=== PATIENT | male | born 1995 | race Asian ===

== ENCOUNTER 2021-08-11 08:52 | Emergency (ER) | payer MEDICAID, OTHER, SELFPAY ==
[2021-08-11 09:04] VITALS: BP 128/93; PULSE 98; O2SAT 100
[2021-08-11 09:05] VITALS: BP 128/93; PULSE 90; RESP 18; TEMP 36.1; O2SAT 97; BMI 23.0
[2021-08-11 09:21] VITALS: BP 126/79; PULSE 76; RESP 18; TEMP 36.9; O2SAT 98
--- NOTE | 2021-08-11 09:22 | ED.PSYCH ---
HPI - Psych General Chief Complaint: Psychiatric Symptoms Stated Complaint: ETOH USE,SI, WANTS HELP Time Seen by Provider: 08/11/21 09:21 History of Present Illness HPI Narrative: Patient is a 26-year-old male positive stresses in life. Presented today with having possible SI. Positive EtOH. Positive depression. Patient unable to give details. Asking for help. Denies any overdose Related Data Allergies Allergy/AdvReac Type Severity Reaction Status Date / Time No Known Allergies Allergy Verified 08/11/21 09:21 Review of Systems Review of Systems: Unable to obtain full review systems 2nd patient's condition [facility] Past Medical History Attestation statement: The following information was validated with the patient. Medical History Depression Social History Social History Advance Directives: No Advance Directives Information Provided: No Physical Exam Vital Signs: Vital Signs: Last Vital Signs Temp 97.7 F 08/11/21 12:11 Pulse 96 08/11/21 12:11 Resp 18 08/11/21 12:11 BP 118/76 08/11/21 12:11 Pulse Ox 98 08/11/21 12:11 Body Mass Index 23.0 Appearance: Alert. Oriented X3. No acute distress. Eyes: Pupils equal, round and reactive to light. ENT: Pharynx normal. Neck: Normal inspection. Neck supple. No lymph nodes noted. No crepitus CVS: Normal heart rate and rhythm. Pulses normal. Normal S1 and S2 Respiratory: No respiratory distress. Breath sounds normal. No Wheezing. No rales Abdomen: Soft and nontender. No rigidity. No distention. good BS x4 Skin: Skin warm and dry. Normal skin color. Normal skin turgor. Extremities: No lower extremity edema. Neurovascular intact to all extremities. No Lacerations. No Rash Neuro: Oriented X 3. No motor deficit. No sensory deficit. Moving all extermities. No slurred speech MDM - Psych MDM Narrative Medical decision making narrative: Patient being seen by crisis intervention for possible suicidal ideation. Alcohol was in the 160s range. Currently medically clear. In stable condition. Lab Data Result diagrams: 08/11/21 09:37 08/11/21 09:37 Labs: Lab Results 1108/11/21 08/11/21 Range/Units 09:37 09:37 09:37 WBC 6.0 (4.8-10.8) X10*3/uL RBC 4.93 (4.60-5.80) X10*6/uL Hgb 15.3 (14.0-18.0) g/dl Hct 44.4 (42.0-52.0) % MCV 90.1 (80.0-98.0) fL MCH 31.0 (27.0-33.0) pg MCHC 34.5 (31.0-36.0) g/dl RDW 13.1 (11.0-16.0) % Plt Count 268 (160-400) X10*3/uL MPV 9.4 (9.4-12.4) fL Immature Gran % (Auto) 0.2 (0.0-0.4) % Neut % (Auto) 56.8 (45-73) % Lymph % (Auto) 34.6 (20-40) % [place] % (Auto) 6.8 (2-11) % Eos % (Auto) 1.3 (0-4) % Baso % (Auto) 0.3 (0-2) % Lymph # (Auto) 2.1 (1.2-4.9) X10*3/uL [place] # (Auto) 0.4 (0.1-1.2) X10*3/uL Eos # (Auto) 0.1 (0.0-0.4) X10*3/uL Baso # (Auto) 0.0 (0.0-0.2) X10*3/uL Abs Immat Gran (auto) 0.01 (0.00-0.03) X10*3/uL Absolute Neuts (auto) 3.4 (2.0-8.3) x10*3/uL Absolute Nucleated RBC 0.000 (0.0-0.012) X10*3/uL Nucleated RBC % (auto) 0.0 (0.0-0.2) /100WBC Sodium 142 (135-145) mmol/L Potassium 4.0 (3.3-5.1) mmol/L Chloride 107 (96-108) mmol/L Carbon Dioxide 22 (22-29) mmol/L Anion Gap 17 (12-20) BUN 13 (9-16) mg/dL Creatinine 0.85 (0.5-1.4) mg/dL Estim Creat Clear Calc 146.1 Estimated GFR > 60 Random Glucose 103 (60-115) mg/dL Calcium 9.5 (8.4-10.2) mg/dL Total Bilirubin 0.4 (0.0-1.0) mg/dL AST 23 (5-37) U/L ALT 27 (0-40) U/L Alkaline Phosphatase 76 (39-117) U/L Total Protein 7.6 (6.5-8.0) g/dL Albumin 4.8 (3.5-5.0) g/dL Salicylates < 5.0 L (15-30) mg/dL Acetaminophen < 1 (<30) mcg/mL Ethyl Alcohol 169 mg/dL COVID-19 ([facility]) (Negative) COVID-19 Clin Com 08/11/21 Range/Units 11:30 WBC (4.8-10.8) X10*3/uL RBC (4.60-5.80) X10*6/uL Hgb (14.0-18.0) g/dl Hct (42.0-52.0) % MCV (80.0-98.0) fL MCH (27.0-33.0) pg MCHC (31.0-36.0) g/dl RDW (11.0-16.0) % Plt Count (160-400) X10*3/uL MPV (9.4-12.4) fL Immature Gran % (Auto) (0.0-0.4) % Neut % (Auto) (45-73) % Lymph % (Auto) (20-40) % [place] % (Auto) (2-11) % Eos % (Auto) (0-4) % Baso % (Auto) (0-2) % Lymph # (Auto) (1.2-4.9) X10*3/uL [place] # (Auto) (0.1-1.2) X10*3/uL Eos # (Auto) (0.0-0.4) X10*3/uL Baso # (Auto) (0.0-0.2) X10*3/uL Abs Immat Gran (auto) (0.00-0.03) X10*3/uL Absolute Neuts (auto) (2.0-8.3) x10*3/uL Absolute Nucleated RBC (0.0-0.012) X10*3/uL Nucleated RBC % (auto) (0.0-0.2) /100WBC Sodium (135-145) mmol/L Potassium (3.3-5.1) mmol/L Chloride (96-108) mmol/L Carbon Dioxide (22-29) mmol/L Anion Gap (12-20) BUN (9-16) mg/dL Creatinine (0.5-1.4) mg/dL Estim Creat Clear Calc Estimated GFR Random Glucose (60-115) mg/dL Calcium (8.4-10.2) mg/dL Total Bilirubin (0.0-1.0) mg/dL AST (5-37) U/L ALT (0-40) U/L Alkaline Phosphatase (39-117) U/L Total Protein (6.5-8.0) g/dL Albumin (3.5-5.0) g/dL Salicylates (15-30) mg/dL Acetaminophen (<30) mcg/mL Ethyl Alcohol mg/dL COVID-19 ([facility]) Negative (Negative) COVID-19 Clin Com See Note Discharge Plan Discharge Clinical Impression: Alcohol intoxication
[2021-08-11 09:42] LABS: Basophils Percent Auto 0.3 % (0-2); Eosinophils Absolute Auto 0.1 X10*3/uL (0.0-0.4); Eosinophils Percent Auto 1.3 % (0-4); Hematocrit 44.4 % (42.0-52.0); Hemoglobin 15.3 g/dl (14.0-18.0); Imm Gran Abs Auto 0.01 X10*3/uL (0.00-0.03); Imm Gran Pct Auto 0.2 % (0.0-0.4); Lymphocytes Absolute Auto 2.1 X10*3/uL (1.2-4.9); Lymphocytes Percent Auto 34.6 % (20-40); MANUAL DIFF FLAG NO; Mean Corpuscular HGB Conc 34.5 g/dl (31.0-36.0); Mean Corpuscular Volume 90.1 fL (80.0-98.0); Mean Platelet Volume 9.4 fL (9.4-12.4); Monocytes Absolute Auto 0.4 X10*3/uL (0.1-1.2); Monocytes Percent Auto 6.8 % (2-11); Neutrophils Absolute Auto 3.4 x10*3/uL (2.0-8.3); Neutrophils Percent Auto 56.8 % (45-73); Platelet Count 268 X10*3/uL (160-400); Red Blood Count 4.93 X10*6/uL (4.60-5.80); Red Cell Distribution Width 13.1 % (11.0-16.0)
[2021-08-11 09:57] LABS: Ethanol 169 mg/dL
[2021-08-11 10:10] LABS: Acetaminophen LAB < 1 mcg/mL (<30); Alanine Aminotransferase 27 U/L (0-40); Albumin Level 4.8 g/dL (3.5-5.0); Alkaline Phosphatase 76 U/L (39-117); Anion Gap 17 (12-20); Aspartate Amino Transferase 23 U/L (5-37); Bilirubin Total 0.4 mg/dL (0.0-1.0); Blood Urea Nitrogen 13 mg/dL (9-16); Calcium 9.5 mg/dL (8.4-10.2); Carbon Dioxide 22 mmol/L (22-29); Chloride 107 mmol/L (96-108); Creatinine Clr Calc Pharmacy 146.1; Estimated Glomerular Filt Rate > 60; Glucose Random 103 mg/dL (60-115); Sodium 142 mmol/L (135-145); Total Protein 7.6 g/dL (6.5-8.0)
[2021-08-11 10:22] LABS: Salicylate < 5.0 mg/dL (15-30)
[2021-08-11 11:51] LABS: COVID-19 Test Negative (Negative)
[2021-08-11 12:11] VITALS: BP 118/76; PULSE 96; RESP 18; TEMP 36.5; O2SAT 98
--- NOTE | 2021-08-11 12:14 | MHC.CARE ---
CARE Team attempted to meet with Pt to determine a plan of care. Pt had minimal engagement with t/w and appears lethargic at this time. Pt had difficulty keeping his eyes open while talking to t/w. Pt reports being up throughout the night consuming alcohol. Pt did not provide further details. Pt has no emergency contact listed t/w asked if there was someone to call for more information which Pt declined. Pt reports he is from [place] and staying locally with a friend. Pt did not provide information regarding his friend. CARE Team contacted [facility] and [facility] to obtain collateral information. Pt is unknown to both agencies. Plan for CARE Team to follow up with Pt in 1-2 hours pending Pt is more alert to engage. Information communicated to Dr. Nicole and RAMA Serrano
[2021-08-11] MEDS: Nicotine 21 MG PATCH.TD24 TRANSDERMA (12:50)
[2021-08-11 15:43] VITALS: BP 130/57; PULSE 82; RESP 16; TEMP 36.7; O2SAT 96
--- NOTE | 2021-08-11 16:46 | MHC.CARE ---
CARE team met with pt to offer support. 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 Yesterday he came out west to visit with a friend in this area. Last night he was drinking with his friend and had a phone conversation with his girlfriend back in [place] that left him feeling not great. He stated that he didn't feel suicidal nor did he want to harm himself, rather than he didn't want to be alone and when he tried to talk to his friend about how he was feeling that his friend didn't respond in a supportive way. He continued to drink and feel more sad, and when he didn't know what else to do he said that he did what he's seen people do in the movies-- they go to a psychiatric hospital and it helps them feel better. He was intoxicated last night and shared that since he has sobered up and gotten some rest that he realized that he doesn't need that level of intervention and is advocating that he be discharged. He denied any history of psychiatric admissions, self harm, or suicidality. He reported that he has a therapist that he has regular zoom appointments with, and denied that he is on any medications at this time. We discussed how he can avoid a similar situation in the future, and pt was able to identify a few friends that he knows will be more reliable and compassionate when he is having a difficult time. His friend from [place] will be driving out to pick him up from the hospital when he is approved for discharge. This account underwriter consulted with ED attending physician Med Benito MD. He is in agreement with plan of care. Pt will follow up with his therapist tomorrow. Provisional diagnosis for this visit is Adjustment Disorder.
--- NOTE | 2021-08-11 17:18 | PC.NURSE ---
pt seen by Care Team and Ed provider and is cleared for discharge. pt is aware of plan of care. he denies SI/HI. no complaints. pt awaiting his friend who is coming from [place] to pick him up. supper ordered for pt.
[2021-08-11 17:22] VITALS: BP 120/77; PULSE 97; RESP 16; TEMP 37.1; O2SAT 96
--- NOTE | 2021-08-11 17:51 | PC.NURSE ---
Pt requested discharge papers, discharge summary given and explained to pt. pt denies pain. no complaints.
== END 2021-08-11 17:52 | disposition home or self-care (01) ==
PROVIDERS: Emergency Provider Emergency Medicine Emergency Medical Services
DX: F10.920 Alcohol use, unspecified with intoxication, uncomplicated (principal); Y90.6 Blood alcohol level of 120-199 mg/100 ml; F32.A Depression, unspecified; F43.20 Adjustment disorder, unspecified; R45.851 Suicidal ideations; Z20.822 Contact with and (suspected) exposure to COVID-19
CPT/HCPCS: 36415; 80053; 80143; 80179; 82077; 85025; 87635; 99283